=== PATIENT | female | born 1975 | race Caucasian/White ===

== ENCOUNTER 2024-11-19 11:51 | Inpatient (IN) | payer BC ==
[~2024-11-19] VITALS: Ht 170.2 cm; Wt 79.4 kg
[2024-11-19] MEDS ORDERED: FUROSEMIDE 40 MG/4 ML VIAL ONE (12:37)
[2024-11-19] MEDS: FUROSEMIDE 40 MG/4 ML VIAL IV ONE (12:49)
[2024-11-19 12:50] LABS: PLATELET COUNT (AUTO) 167 K/uL (150-450); RED BLOOD CELL COUNT(AUTO) 4.16 MIL/uL (4.0-5.2); RED CELL DISTRIBUTION WIDTH 16.1 % (11.5-15.0); WHITE BLOOD COUNT (AUTO) 5.5 K/uL (4.3-11.0)
[2024-11-19 13:00] LABS: CALCIUM, SERUM 8.8 mg/dL (8.5-10.1); CREATININE 0.6 mg/dL (0.6-1.3); SODIUM SERUM 136 mmol/L (136-145); UREA NITROGEN, BLOOD 15 mg/dL (7-18)
[2024-11-19 13:13] LABS: NT-PRO BNP 987 pg/mL (0-125)
[2024-11-19 15:00] VITALS: BP 121/67; TEMP 97.9; O2SAT 96
[2024-11-19] MEDS ORDERED: ONDA4TAB11 PO (15:08)
[2024-11-19] MEDS ORDERED: ALBU8.5H8 IH (15:08)
[2024-11-19] MEDS ORDERED: FURO20TA4 PO (15:08)
[2024-11-19] MEDS ORDERED: BUSP15TA3 PO (15:08)
[2024-11-19] MEDS ORDERED: IBUP-1492 PO (15:08)
[2024-11-19] MEDS ORDERED: PANT40TA49 PO (15:08)
[2024-11-19] MEDS ORDERED: HYDR50TA61 PO (15:08)
[2024-11-19] MEDS ORDERED: QUET100T PO (15:08)
[2024-11-19] MEDS ORDERED: METH10TA7 PO (15:08)
[2024-11-19] MEDS ORDERED: METO50TA16 PO (15:08)
[2024-11-19] MEDS ORDERED: LIDO700A30 TP (15:08)
[2024-11-19] MEDS ORDERED: PHEN100C12 PO (15:08)
[2024-11-19] MEDS ORDERED: HYDR-3895 PO (15:08)
[2024-11-19] MEDS ORDERED: BUPR8TAB4 SL (15:08)
[2024-11-19] MEDS ORDERED: LURA80TA PO (15:08)
[2024-11-19] MEDS ORDERED: METH750T3 PO (15:08)
[2024-11-19] MEDS ORDERED: GABA800T11 PO (15:08)
[2024-11-19 16:00] VITALS: BP 121/67; TEMP 97.9; O2SAT 96
[2024-11-19 17:00] VITALS: BP 123/86; TEMP 97.9; O2SAT 98
[2024-11-19] MEDS: METOPROLOL TARTRATE 50 MG TABLET PO SCH (17:16)
[2024-11-19 18:56] LABS: IRON, SERUM 31 ug/dl (50-175)
[2024-11-19 21:00] VITALS: BP 140/78; TEMP 97.9; O2SAT 100
[2024-11-19] MEDS ORDERED: ACETAMINOPHEN 325 MG TABLET PO PRN (21:00)
[2024-11-19] MEDS ORDERED: MAG HYDROX/AL HYDROX/SIMETH 30 ML UDC PO PRN (21:00)
[2024-11-19] MEDS ORDERED: MAGNESIUM HYDROXIDE 30 ML UDC PO PRN (21:00)
[2024-11-19] MEDS ORDERED: Z GUARD REMEDY 4 OZ OINT TP PRN (21:00)
[2024-11-19] MEDS: ENOXAPARIN SODIUM 40 MG/0.4 ML DISP.SYRIN SQ SCH (21:12)
[2024-11-19] MEDS: NICOTINE PATCH (14MG) 14 MG PATCH.TD24 TD SCH (21:13)
[2024-11-20 01:00] VITALS: BP 111/66; TEMP 97.9; O2SAT 100
[2024-11-20 05:00] VITALS: BP 127/92; TEMP 97.8; O2SAT 100
[2024-11-20 07:45] LABS: PLATELET COUNT (AUTO) 202 K/uL (150-450); RED BLOOD CELL COUNT(AUTO) 4.77 MIL/uL (4.0-5.2); RED CELL DISTRIBUTION WIDTH 16.0 % (11.5-15.0); WHITE BLOOD COUNT (AUTO) 4.7 K/uL (4.3-11.0)
[2024-11-20 08:11] LABS: CALCIUM, SERUM 8.7 mg/dL (8.5-10.1); CREATININE 0.5 mg/dL (0.6-1.3); SODIUM SERUM 139 mmol/L (136-145); UREA NITROGEN, BLOOD 13 mg/dL (7-18)
[2024-11-20 08:22] LABS: NT-PRO BNP 372 pg/mL (0-125); PHOSPHORUS 4.0 mg/dL (2.5-4.9)
[2024-11-20 08:27] LABS: LDL 65 mg/dL (0-99)
[2024-11-20 08:35] LABS: PREGNANCY TEST URINE QUAL NEGATIVE (NEGATIVE)
[2024-11-20 09:00] VITALS: BP 128/71; TEMP 97.9; O2SAT 100
[2024-11-20 09:00] LABS: APPEARANCE,URINE CLEAR (CLEAR); BLOOD, URINE NEGATIVE Ery/uL (NEGATIVE); LEUKOCYTE ESTERASE ,URINE NEGATIVE (NEGATIVE); NITRITE, URINE NEGATIVE (NEGATIVE); UGLUCOSE NEGATIVE (NEGATIVE)
[2024-11-20 09:07] LABS: ASPARTATE AMINOTRANSFERASE 18.0 U/L (15-37); TOTAL PROTEIN, SERUM 7.2 g/dL (6.4-8.2)
[2024-11-20] MEDS: FUROSEMIDE 20 MG/2 ML VIAL IV SCH (09:18)
[2024-11-20] MEDS ORDERED: FUROSEMIDE 20 MG TABLET PO PRN (10:00)
[2024-11-20] MEDS ORDERED: QUETIAPINE FUMARATE 100 MG TABLET PO PRN (10:00)
[2024-11-20] MEDS ORDERED: ONDANSETRON 4 MG TAB.RAPDIS PO PRN (10:00)
[2024-11-20] MEDS ORDERED: LATUDA 80 MG XX SCH (10:00)
[2024-11-20] MEDS ORDERED: ALBUTEROL FS 2.5 MG/3 ML VIAL.NEB IH PRN (10:30)
[2024-11-20] MEDS: METHIMAZOLE (5MG) 5 MG TABLET PO SCH (11:02)
[2024-11-20] MEDS: LIDOCAINE 5% (PATCH) 1 EA PATCH TP SCH (11:02)
[2024-11-20] MEDS: IBUPROFEN 400 MG TABLET PO SCH (13:41)
[2024-11-20] MEDS: PHENYTOIN EXTENDED RELEASE 100 MG CAPSULE PO SCH (13:41)
[2024-11-20] MEDS: GABAPENTIN 400 MG CAPSULE PO SCH (13:44)
[2024-11-20] MEDS: BUPRENORPHINE HCL 8 MG TAB.SUBL SL SCH (13:44)
[2024-11-20] MEDS: METHOCARBAMOL (750MG) 750 MG TABLET PO SCH (13:44)
[2024-11-20] MEDS: ONDANSETRON HCL/PF 4 MG/2 ML VIAL IVP PRN (13:45)
[2024-11-20] MEDS: SOD FERRIC GLUC 125 MG in IV NS 0.9% 100 ML IV SCH (14:06)
[2024-11-20 16:00] VITALS: BP 121/67; TEMP 97.9; O2SAT 98
[2024-11-20 20:00] VITALS: BP 116/61; TEMP 98.2; O2SAT 98
[2024-11-21 04:00] VITALS: BP 106/44; TEMP 98.1; O2SAT 100
[2024-11-21 04:40] VITALS: BP 116/61; TEMP 98.1; O2SAT 98
[2024-11-21 07:51] LABS: CALCIUM, SERUM 9.0 mg/dL (8.5-10.1); CREATININE 0.6 mg/dL (0.6-1.3); SODIUM SERUM 141.0 mmol/L (136-145); UREA NITROGEN, BLOOD 12.0 mg/dL (7-18)
[2024-11-21 08:00] VITALS: BP 131/49; TEMP 97.9; O2SAT 98
[2024-11-21] MEDS: PANTOPRAZOLE 40 MG TABLET.DR PO SCH (09:35)
[2024-11-21 09:36] VITALS: TEMP 97.9
[2024-11-21 09:37] VITALS: BP 131/49
[2024-11-21] MEDS ORDERED: ONDA4TAB5 PO (12:16)
[2024-11-21] MEDS ORDERED: FURO-145 PO (12:16)
== END 2024-11-21 13:25 | disposition home or self-care (01) | DRG 291 ==
LOC: ER 12:01 → TELE1 14:26 → MEDSG1 11-20 09:50
PROVIDERS: ADMIT Nurse Practitioner Family; ATTEND Nurse Practitioner Acute Care
DX: I11.0 Hypertensive heart disease with heart failure (principal); I50.33 Acute on chronic diastolic (congestive) heart failure; G89.4 Chronic pain syndrome; G40.909 Epilepsy, unspecified, not intractable, without status epilepticus; K21.9 Gastro-esophageal reflux disease without esophagitis; D50.9 Iron deficiency anemia, unspecified; F17.200 Nicotine dependence, unspecified, uncomplicated; F31.9 Bipolar disorder, unspecified; I08.0 Rheumatic disorders of both mitral and aortic valves; E05.90 Thyrotoxicosis, unspecified without thyrotoxic crisis or storm; F41.9 Anxiety disorder, unspecified; F39 Unspecified mood [affective] disorder; Z91.148 Patient's other noncompliance with medication regimen for other reason; F15.11 Other stimulant abuse, in remission; I42.8 Other cardiomyopathies
CPT/HCPCS: 36415; 71045-TC; 80048-TC; 80061-TC; 80076-TC; 82728-TC; 83540-TC; 83735-TC; 83880; 84100-TC; 84439-TC; 84443-TC; 84484-TC; 84703-TC; 85025-TC; 87081-TC; 93307-TC; 93970-TC; A4223; G0378; J1650; J1938; J2405; J2916; J7030

== ENCOUNTER 2024-12-18 16:31 | Emergency (ER) | payer BC ==
[~2024-12-18] VITALS: Ht 162.6 cm; Wt 64.4 kg
[~2024-12-18 16:31] MED LIST: ALBU8.5H8 IH; BUPR8TAB4 SL; BUSP15TA3 PO; FURO-145 PO; FURO20TA4 PO; GABA800T11 PO; HYDR-3895 PO; HYDR50TA61 PO; IBUP-1492 PO; LIDO700A30 TP; LURA80TA PO; METH10TA7 PO; METH750T3 PO; METO50TA16 PO; ONDA4TAB11 PO; ONDA4TAB5 PO; PANT40TA49 PO; PHEN100C12 PO; QUET100T PO
[2024-12-18 16:42] VITALS: TEMP 98.3
[2024-12-18] MEDS ORDERED: ACETAMINOPHEN 325 MG TABLET ONE (18:02)
[2024-12-18] MEDS: ACETAMINOPHEN 325 MG TABLET PO ONE (18:10)
[2024-12-18] MEDS ORDERED: oxyCODONE/APAP (5/325 MG) 1 UDTAB TABLET ONE (19:45)
[2024-12-18] MEDS: oxyCODONE/APAP (5/325 MG) 1 UDTAB TABLET PO ONE (19:47)
[2024-12-18] MEDS ORDERED: IBUP-1953 PO (20:51)
[2024-12-18 21:10] VITALS: BP 126/82; O2SAT 98
== END 2024-12-18 21:10 | disposition home or self-care (01) ==
LOC: ER 16:56
DX: S01.112A Laceration without foreign body of left eyelid and periocular area, initial encounter (principal); M25.522 Pain in left elbow; M25.532 Pain in left wrist; Z79.1 Long term (current) use of non-steroidal anti-inflammatories (NSAID); Z79.899 Other long term (current) drug therapy; Z85.3 Personal history of malignant neoplasm of breast; Z88.5 Allergy status to narcotic agent; Z86.79 Personal history of other diseases of the circulatory system; Z87.09 Personal history of other diseases of the respiratory system; Z87.448 Personal history of other diseases of urinary system; Z87.42 Personal history of other diseases of the female genital tract; Z86.59 Personal history of other mental and behavioral disorders; W01.0XXA Fall on same level from slipping, tripping and stumbling without subsequent striking against object, initial encounter; Y93.01 Activity, walking, marching and hiking; Y92.89 Other specified places as the place of occurrence of the external cause; Y99.8 Other external cause status
CPT/HCPCS: 29125; 73080; 73110; 99284; A4223